=== PATIENT | male | born 1990 | race Caucasian/White ===

== ENCOUNTER → 2017-05-30 | Outpatient (REF) | payer OTHER | LOC: M LAB REF 16:13 | PROVIDERS: ATTEND Physician Assistant | DX: L02.511 Cutaneous abscess of right hand (principal) ==

== ENCOUNTER → 2017-09-09 | Outpatient (REF) | payer OTHER ==
[2017-09-09 19:17] LABS: INFLUENZA A AMPLIFICATION NEGATIVE (NEGATIVE); INFLUENZA B AMPLIFICATION NEGATIVE (NEGATIVE)
== END ==
LOC: M LAB REF 18:24
DX: J11.1 Influenza due to unidentified influenza virus with other respiratory manifestations (principal)
CPT/HCPCS: 87502

== ENCOUNTER 2017-12-01 18:07 | Emergency (ER) | payer OTHER ==
[2017-12-01] MEDS ORDERED: MAGIC MOUTHWASH SUSPENSION BTL SSP (18:38)
[2017-12-01] MEDS: LIDOCAINE VISCOUS 2% SOLN 15ML UDC SSP (18:49)
== END 2017-12-01 19:49 | disposition home or self-care (01) ==
LOC: M ED 18:07
DX: K02.9 Dental caries, unspecified (principal); K08.89 Other specified disorders of teeth and supporting structures; Z88.1 Allergy status to other antibiotic agents
CPT/HCPCS: 99282

== ENCOUNTER 2018-05-07 16:11 | Emergency (ER) | payer SELFPAY, MEDICAID, OTHER | END 2018-05-07 18:17 | disposition home or self-care (01) | LOC: M ED 16:11 | DX: J06.9 Acute upper respiratory infection, unspecified (principal) | CPT/HCPCS: 71046 ==

== ENCOUNTER 2018-09-22 03:23 | Emergency (ER) | payer OTHER, SELFPAY ==
[~2018-09-22] VITALS: Ht 175.3 cm; Wt 95.5 kg
[~2018-09-22 03:23] MED LIST: ALL10TAB28 PO; CLEO300C2 PO; MAGICMW MT; MOTR200T44 PO; PROAAER10 INH
[2018-09-22 04:08] LABS: HEMATOCRIT 45.3 % (42.0-52.0); HEMOGLOBIN 15.5 g/dl (13.5-17.5); MEAN CORPUSCULAR HEMOGLOBIN 29.3 pg (27.0-33.0); MEAN CORPUSCULAR HGB CONC 34.2 g/dl (32.0-36.5); MEAN CORPUSCULAR VOLUME 85.6 fl (80.0-96.0); PLATELET COUNT, AUTOMATED 315 10^3/uL (150-450); RED BLOOD COUNT 5.29 10^6/uL (4.30-6.10); WHITE BLOOD COUNT 10.3 10^3/uL (4.0-10.0)
[2018-09-22] MEDS ORDERED: HALOPERIDOL 5 MG/ML VIAL (J1630) IM ONE (04:15)
[2018-09-22] MEDS ORDERED: diphenhydrAMINE INJ 50MG/ML VIAL (J1200) IM ONE (04:15)
[2018-09-22] MEDS ORDERED: chlorproMAZINE INJ 50MG/2ML AMP (J3230) IM STA (04:20)
[2018-09-22 04:29] LABS: ACETAMINOPHEN LEVEL < 2.0 UG/ML (10.0-30.0); ALBUMIN 4.4 GM/DL (3.2-5.2); ALT/SGPT 44 U/L (12-78); BILIRUBIN,DIRECT 0.1 MG/DL (0.0-0.2); BILIRUBIN,TOTAL 0.6 MG/DL (0.2-1.0); BLOOD UREA NITROGEN 15 MG/DL (7-18); CALCIUM LEVEL 8.6 MG/DL (8.5-10.1); CARBON DIOXIDE LEVEL 21 MEQ/L (21-32); CHLORIDE LEVEL 107 MEQ/L (98-107); CREATININE FOR GFR 0.87 MG/DL (0.70-1.30); ETHYL ALCOHOL (ETHANOL) 0.286 % (0.000-0.010); GLOMERULAR FILTRATION RATE > 60.0 (>60); GLUCOSE, FASTING 113 MG/DL (70-100); POTASSIUM SERUM 3.5 MEQ/L (3.5-5.1); SALICYLATE LEVEL < 1.7 MG/DL (5.0-30.0); SODIUM LEVEL 139 MEQ/L (136-145); TOTAL PROTEIN 8.1 GM/DL (6.4-8.2)
[2018-09-22] MEDS ORDERED: LORazepam 2 MG/ML VIAL (J2060) IM STA (04:55)
[2018-09-22] MEDS ORDERED: HALOPERIDOL 5 MG/ML VIAL (J1630) IM STA (05:27)
[2018-09-22] MEDS ORDERED: LORazepam 2 MG TAB PO PRN (07:00)
[2018-09-22] MEDS ORDERED: NS 1,000 ML IV ONE ×2 (07:30→15:30)
[2018-09-22 08:26] LABS: AMPHETAMINES LEVEL URINE NEGATIVE (NEGATIVE); BARBITURATES URINE NEGATIVE (NEGATIVE); BENZODIAZEPINES URINE NEGATIVE (NEGATIVE); CANNABINOIDS URINE NEGATIVE (NEGATIVE); COCAINE METABOLITE URINE NEGATIVE (NEGATIVE); METHADONE URINE NEGATIVE (NEGATIVE); OPIATES URINE NEGATIVE (NEGATIVE); PHENCYCLIDINE URINE NEGATIVE (NEGATIVE)
[2018-09-22] MEDS ORDERED: FOLIC ACID 1 MG TAB PO SCH (09:00)
[2018-09-22] MEDS ORDERED: MULTIVITAMINS/MINERALS THERAP 1 TAB PO SCH (09:00)
[2018-09-22] MEDS ORDERED: D5W/0.9% SODIUM CHLORIDE 1,000 ML IV ONE (10:30)
--- NOTE | 2018-09-22 11:36 | REP ---
CT BRAIN WITHOUT IV CONTRAST: CT brain performed without IV contrast. Ventricles are normal in size and position with no midline shift or mass effect. Reddy-white differentiation is well maintained. There is on acute hemorrhage or extra-axial fluid collection. Bone window examination is unremarkable. IMPRESSION: Negative noncontrast CT brain. Electronically Signed by Catarino Reddy MD 09/22/2018 07:23 P
[2018-09-22] MEDS ORDERED: AMMONIA AROMATIC INHALANT (FLOOR STOCK) STA (12:41)
[2018-09-22] MEDS: THIAMINE 100 MG TAB PO SCH ×2 (17:47→21:00)
--- NOTE | 2018-09-23 06:41 | ECGEPIP ---
Stationary ECG Study [facility] - ED Test Date: 2018-09-23 Pat Name: MULUGETA TROY Department: Room: - Gender: M [employer]: : 1990 Requested By: RADHA KEEN Order Number: [id number] Reading MD: Shawn Shaikh Measurements Intervals [place] Rate: 99 P: 53 AK: 151 QRS: 38 QRSD: 95 T: 29 QT: 343 QTc: 441 Interpretive Statements SINUS RHYTHM NO OLD ECG FOR COMPARISON Electronically Signed On 09-23-2018 6:41:16 EST by Shawn Shaikh
[2018-09-23 08:35] VITALS: BP 132/72
== END 2018-09-23 08:40 | disposition short-term general hospital (02) ==
LOC: M ED 03:23
DX: F10.120 Alcohol abuse with intoxication, uncomplicated (principal); F91.9 Conduct disorder, unspecified; R45.851 Suicidal ideations; Z88.1 Allergy status to other antibiotic agents; Z79.899 Other long term (current) drug therapy
CPT/HCPCS: 36415; 51701; 70450; 80048; 80076; 80307; 84443; 85027; 93005; 93041; 96360; 96372; 99285; G0480; J1200; J1630; J2060; J3230

== ENCOUNTER 2018-11-25 07:50 | Emergency (ER) | payer OTHER ==
[~2018-11-25] VITALS: Ht 180.3 cm; Wt 86.4 kg
[2018-11-25] MEDS ORDERED: LIDOCAINE 1% MDV 20ML VIAL As Ordered ONE (08:10)
[2018-11-25] MEDS ORDERED: LIDOCAINE 1% MDV 20ML VIAL SC ONE (08:15)
[2018-11-25] MEDS ORDERED: ADACEL/BOOSTRIX VACCINE (DIPHTH/PERTUSS/ACELL/TETANUS)0.5ML SYR (90715) IM ONE (08:15)
[2018-11-25] MEDS ORDERED: NS 1,000 ML IV SCH (08:33)
[2018-11-25 09:00] VITALS: BP 119/70
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
== END 2018-11-25 09:25 | disposition short-term general hospital (02) ==
LOC: M ED 07:50
DX: S06.6X0A Traumatic subarachnoid hemorrhage without loss of consciousness, initial encounter (principal); S01.511A Laceration without foreign body of lip, initial encounter; W01.10XA Fall on same level from slipping, tripping and stumbling with subsequent striking against unspecified object, initial encounter; Y92.002 Bathroom of unspecified non-institutional (private) residence as the place of occurrence of the external cause; Y93.01 Activity, walking, marching and hiking; Z88.1 Allergy status to other antibiotic agents

== ENCOUNTER 2018-11-27 16:26 | Emergency (ER) | payer OTHER ==
[~2018-11-27] VITALS: Ht 180.3 cm; Wt 95.5 kg
[2018-11-27] MEDS ORDERED: ACET160S3 PO (16:32)
[2018-11-27] MEDS ORDERED: NORC1TAB7 PO (17:59)
[2018-11-27] MEDS ORDERED: CLEO300C2 PO (17:59)
[2018-11-27 18:12] VITALS: BP 131/92
== END 2018-11-27 18:23 | disposition home or self-care (01) ==
LOC: M ED 16:26
DX: K05.213 Aggressive periodontitis, localized, severe (principal); K02.9 Dental caries, unspecified; R68.84 Jaw pain; Z86.79 Personal history of other diseases of the circulatory system; Z88.1 Allergy status to other antibiotic agents

== ENCOUNTER 2019-08-21 23:03 | Emergency (ER) | payer OTHER ==
[~2019-08-21] VITALS: Ht 175.3 cm; Wt 99.9 kg
[~2019-08-21 23:03] MED LIST changes: +ACET160S3 PO; -ALL10TAB28 PO; +ALL10TAB29 PO; +NORC1TAB7 PO
[2019-08-22 00:13] LABS: INFLUENZA A AMPLIFICATION NEGATIVE (NEGATIVE); INFLUENZA B AMPLIFICATION NEGATIVE (NEGATIVE)
[2019-08-22] MEDS ORDERED: CLARITHROMYCIN 250 MG TAB PO ONE (00:30)
[2019-08-22] MEDS ORDERED: CLAR250T22 PO (00:30)
[2019-08-22 00:50] VITALS: BP 114/70
[2019-08-22] MEDS ORDERED: CLARITHROMYCIN 250 MG TAB PO SCH (09:00)
== END 2019-08-22 00:51 | disposition home or self-care (01) ==
LOC: M ED 23:03
DX: J02.0 Streptococcal pharyngitis (principal); Z88.8 Allergy status to other drugs, medicaments and biological substances

== ENCOUNTER 2019-08-29 22:56 | Emergency (ER) | payer OTHER ==
[~2019-08-29] VITALS: Ht 177.8 cm; Wt 95.3 kg
[~2019-08-29 22:56] MED LIST changes: +CLAR250T22 PO
[2019-08-29 22:57] VITALS: BP 132/66
[2019-08-30 01:46] LABS: INFLUENZA A AMPLIFICATION NEGATIVE (NEGATIVE); INFLUENZA B AMPLIFICATION NEGATIVE (NEGATIVE)
[2019-08-30] MEDS ORDERED: LIDOCAINE VISCOUS 2% SOLN 15ML UDC SS ONE (02:45)
== END 2019-08-30 02:55 | disposition home or self-care (01) ==
LOC: M ED 22:56
DX: J02.8 Acute pharyngitis due to other specified organisms (principal); Z88.1 Allergy status to other antibiotic agents

== ENCOUNTER 2019-09-28 03:44 | Emergency (ER) | payer OTHER ==
[~2019-09-28] VITALS: Ht 177.8 cm; Wt 93.2 kg
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
[2019-09-28 05:09] LABS: BASO % 0.4 % (0.0-1.0); EOS # 0.1 10^3/uL (0.0-0.5); EOS % 0.7 % (0.0-3.0); HEMATOCRIT 45.1 % (42.0-52.0); HEMOGLOBIN 15.3 g/dl (13.5-17.5); LYMPH # 1.6 10^3/uL (1.5-5.0); LYMPH % 22.2 % (24.0-44.0); MEAN CORPUSCULAR HEMOGLOBIN 28.9 pg (27.0-33.0); MEAN CORPUSCULAR HGB CONC 33.9 g/dl (32.0-36.5); MEAN CORPUSCULAR VOLUME 85.1 fl (80.0-96.0); MONO # 0.4 10^3/uL (0.0-0.8); NEUTROPHILS % 70.4 % (36.0-66.0); PLATELET COUNT, AUTOMATED 306 10^3/uL (150-450); WHITE BLOOD COUNT 7.1 10^3/uL (4.0-10.0)
[2019-09-28 05:20] LABS: INR 1.06; PROTHROMBIN TIME 13.5 SECONDS (11.8-14.0)
[2019-09-28 05:21] LABS: PARTIAL THROMBOPLASTIN TIME 28.3 SECONDS (25.0-38.4)
[2019-09-28 05:31] LABS: BLOOD UREA NITROGEN 11 MG/DL (7-18); CALCIUM LEVEL 9.4 MG/DL (8.5-10.1); CARBON DIOXIDE LEVEL 26 MEQ/L (21-32); CHLORIDE LEVEL 105 MEQ/L (98-107); CREATININE FOR GFR 0.91 MG/DL (0.70-1.30); ETHYL ALCOHOL (ETHANOL) 0.126 % (0.000-0.010); GLOMERULAR FILTRATION RATE > 60.0 (>60); GLUCOSE, FASTING 113 MG/DL (70-100); POTASSIUM SERUM 3.6 MEQ/L (3.5-5.1); SODIUM LEVEL 141 MEQ/L (136-145)
[2019-09-28 05:56] VITALS: BP 111/72
== END 2019-09-28 05:56 | disposition short-term general hospital (02) ==
LOC: M ED 03:44
DX: S06.6X0A Traumatic subarachnoid hemorrhage without loss of consciousness, initial encounter (principal); T76.11XA Adult physical abuse, suspected, initial encounter; Y07.9 Unspecified perpetrator of maltreatment and neglect; Y92.9 Unspecified place or not applicable; Y93.9 Activity, unspecified; Y99.9 Unspecified external cause status; F10.120 Alcohol abuse with intoxication, uncomplicated
CPT/HCPCS: 36415; 70450; 70486; 72125; 80048; 85025; 85610; 85730; 99285; G0480

== ENCOUNTER 2019-10-17 04:51 | Emergency (ER) | payer OTHER ==
[~2019-10-17] VITALS: Ht 177.8 cm; Wt 95.5 kg
[2019-10-17] MEDS ORDERED: ONDANSETRON 4MG/2ML VIAL (J2405) IV ONE (05:00)
[2019-10-17] MEDS ORDERED: NS 1,000 ML IV ONE (05:00)
[2019-10-17 05:19] LABS: BASO # 0.1 10^3/uL (0.0-0.2); BASO % 0.7 % (0.0-1.0); EOS # 0.1 10^3/uL (0.0-0.5); EOS % 0.8 % (0.0-3.0); HEMATOCRIT 45.5 % (42.0-52.0); HEMOGLOBIN 15.4 g/dl (13.5-17.5); LYMPH # 2.6 10^3/uL (1.5-5.0); LYMPH % 30.2 % (24.0-44.0); MEAN CORPUSCULAR HEMOGLOBIN 28.8 pg (27.0-33.0); MEAN CORPUSCULAR HGB CONC 33.8 g/dl (32.0-36.5); MEAN CORPUSCULAR VOLUME 85.2 fl (80.0-96.0); MONO # 0.5 10^3/uL (0.0-0.8); MONO % 5.4 % (0.0-5.0); NEUTROPHILS # 5.3 10^3/uL (1.5-8.5); NEUTROPHILS % 62.3 % (36.0-66.0); PLATELET COUNT, AUTOMATED 314 10^3/uL (150-450); RED BLOOD COUNT 5.34 10^6/uL (4.30-6.10); WHITE BLOOD COUNT 8.5 10^3/uL (4.0-10.0)
[2019-10-17 05:53] LABS: ALBUMIN 4.4 GM/DL (3.2-5.2); ALT/SGPT 35 U/L (12-78); BILIRUBIN,DIRECT 0.2 MG/DL (0.0-0.2); BILIRUBIN,TOTAL 0.6 MG/DL (0.2-1.0); BLOOD UREA NITROGEN 17 MG/DL (7-18); CARBON DIOXIDE LEVEL 23 MEQ/L (21-32); CHLORIDE LEVEL 107 MEQ/L (98-107); CREATININE FOR GFR 0.88 MG/DL (0.70-1.30); GLOMERULAR FILTRATION RATE > 60.0 (>60); GLUCOSE, FASTING 124 MG/DL (70-100); LIPASE 108 U/L (73-393); POTASSIUM SERUM 3.8 MEQ/L (3.5-5.1); SODIUM LEVEL 140 MEQ/L (136-145); TOTAL PROTEIN 8.3 GM/DL (6.4-8.2)
[2019-10-17 06:39] VITALS: BP 110/68
[2019-10-17] MEDS ORDERED: ZOFR4TAB16 PO (06:39)
== END 2019-10-17 06:51 | disposition home or self-care (01) ==
LOC: M ED 04:51 → EDBD 04:51 → M ED 06:51
DX: F10.229 Alcohol dependence with intoxication, unspecified (principal); Y90.1 Blood alcohol level of 20-39 mg/100 ml; Z88.1 Allergy status to other antibiotic agents
CPT/HCPCS: 80048; 80076; 83690; 85025; 96361; 96374; 99284; G0480; J2405

== ENCOUNTER 2021-01-06 21:53 | Emergency (ER) | payer OTHER ==
[~2021-01-06] VITALS: Ht 177.8 cm; Wt 99.7 kg
[~2021-01-06 21:53] MED LIST changes: -ALL10TAB29 PO; +CETI-24 PO; +ZOFR4TAB16 PO
[2021-01-07] MEDS ORDERED: KETOROLAC 60MG 2ML VIAL IM ONE (00:30)
[2021-01-07] MEDS ORDERED: CLINDAMYCIN 150MG CAPSULE PO ONE (00:30)
[2021-01-07] MEDS ORDERED: NORCO 5/325MG TABLET (BULK FOR ED) PO ONE (00:30)
[2021-01-07] MEDS ORDERED: CLEO300C2 PO (00:33)
[2021-01-07] MEDS ORDERED: MAGICMW SSP (00:33)
[2021-01-07] MEDS ORDERED: IBUP80TA PO (00:33)
[2021-01-07] MEDS ORDERED: HYDR-3713 PO (00:33)
[2021-01-07 00:54] VITALS: BP 140/91
== END 2021-01-07 00:59 | disposition home or self-care (01) ==
LOC: M ED 21:53
DX: K00.6 Disturbances in tooth eruption (principal); K08.89 Other specified disorders of teeth and supporting structures; Z88.1 Allergy status to other antibiotic agents
CPT/HCPCS: 96372; 99283; J1885

== ENCOUNTER 2021-01-09 13:06 | Observation (INO) | payer OTHER ==
[2021-01-08 18:25] VITALS: BP 133/75
[~2021-01-09] VITALS: Ht 177.8 cm; Wt 99.3 kg
[~2021-01-09 13:06] MED LIST changes: +HYDR-3713 PO; +IBUP80TA PO; +MAGICMW SSP
[2021-01-09] MEDS ORDERED: HYDR-4571 PO (13:32)
[2021-01-09] MEDS ORDERED: KETOROLAC 30 MG/ML 1ML VIAL IV ONE (14:45)
[2021-01-09] MEDS ORDERED: ISOVUE-370 76% 100ML VIAL As Ordered ONE (14:52)
[2021-01-09 15:00] LABS: BASO % 0.3 % (0.0-1.0); EOS # 0.1 10^3/uL (0.0-0.5); EOS % 1.2 % (0.0-3.0); HEMATOCRIT 44.8 % (42.0-52.0); HEMOGLOBIN 14.6 g/dl (13.5-17.5); LYMPH # 1.5 10^3/uL (1.5-5.0); LYMPH % 16.7 % (24.0-44.0); MEAN CORPUSCULAR HEMOGLOBIN 27.8 pg (27.0-33.0); MEAN CORPUSCULAR HGB CONC 32.6 g/dl (32.0-36.5); MEAN CORPUSCULAR VOLUME 85.3 fl (80.0-96.0); MONO # 0.6 10^3/uL (0.0-0.8); MONO % 6.3 % (2.0-8.0); NEUTROPHILS # 6.9 10^3/uL (1.5-8.5); NEUTROPHILS % 75.2 % (36.0-66.0); PLATELET COUNT, AUTOMATED 322 10^3/uL (150-450); RED BLOOD COUNT 5.25 10^6/uL (4.30-6.10); WHITE BLOOD COUNT 9.2 10^3/uL (4.0-10.0)
--- NOTE | 2021-01-09 15:25 | REP ---
INDICATION: concern for dental abscess, include mandible please COMPARISON: None. TECHNIQUE: Axial contrast-enhanced images through the facial bones to include the mandible with coronal and sagittal re-formations using 75 cc Isovue 370 intravenous contrast material. FINDINGS: Soft tissue swelling with phlegmonous changes and inflammatory stranding surrounds the left mandibular angle extending into the sublingual region of the oropharynx along with reactive submandibular and left cervical chain lymph nodes consistent with an infectious/inflammatory process likely related to dental pathology primarily involving the left mandibular wisdom teeth. No obvious discernible drainable collection/abscess is currently identified. There is associated mass effect along the left side of the oropharynx but the airway remains patent and of normal luminal diameter. Osseous structures, mastoid air cells and sinuses are normal. IMPRESSION: Significant infectious/inflammatory findings with swelling and phlegmonous changes along the left side of the face centered around the left mandibular angle at the site of molar dental cavities. Associated reactive submandibular and left cervical chain adenopathy noted. No drainable collection/abscess currently identified. <Electronically signed by Edmundo Caballero > 01/09/21 [id number]
[2021-01-09] MEDS ORDERED: CLINDAMYCIN 600 MG in IV 1 EA IV ONE (15:45)
[2021-01-09] MEDS ORDERED: ACETAMINOPHEN 500 MG TAB PO PRN (16:20)
[2021-01-09 17:03] LABS: RSV AMPLIFICATION NEGATIVE (NEGATIVE)
--- NOTE | 2021-01-09 17:29 | HPEPDOC ---
General Date of Admission January 09, 2021 at 16:19 Date of Service: January 09, 2021 Chief Complaint The patient is a 30-year-old male admitted with a reason for visit of Infected Dental Caries. Source: Patient History of Present Illness 30-year-old male with no past medical history presented to the emergency room for left lower jaw pain and swelling for the past 3 weeks. Patient had initially gone to see a dentist and he was diagnosed with the dental caries with infection and was referred to an oral surgeon and given an antibiotic, amoxicillin course for 10 days. If he needs the course of amoxicillin. However, he is some pain didn't improve, so he came to the emergency room 3 days ago and was given a course of clindamycin. Patient's appointment with the oral surgeon was in March. Patient came back today to the emergency room because of unrelenting pain in the left lower jaw 10 x 10 in intensity, sharp, throbbing in quality, unable to chew, unable to open his mouth radiating along the whole of his left lower jaw Left-sided neck and to the left ear. Maxillofacial CT in the emergency room showed soft tissue swelling with phlegmonous changes and inflammatory stranding surrounds the left mandibular angle extending into the sublingual region of the oropharynx along with reactive submandibular and left cervical chain lymph nodes consistent with an infectious/inflammatory process likely related to dental pathology primarily involving the left mandibular wisdom teeth. No obvious discernible drainable collection/abscess. Oral surgeon, Dr. Morgan was contacted by the ED provider and the case discussed with him. Dr. Morgan recommended patient to be admitted for IV antibiotics and that he would see the patient in the office on MondayJanuary 12 at 8 AM. If the patient worsens while in the hospital, then he would consult on the patient in house. Patient is admitted to the hospitalist service for left mandibular infection related to dental pathology for IV antibiotics Home Medications Scheduled Clindamycin Hcl (Cleocin HCl) 300 Mg Capsule, 1 CAP PO TID Scheduled PRN Ibuprofen (Ibuprofen) 800 Mg Tablet, 800 MG PO Q6H PRN for PAIN Miscellaneous Medications Hydrocodone/Acetaminophen (Hydrocodone-Acetamin 5-325 mg) 1 Each Tablet, (Reported) Allergies Coded Allergies: cefaclor (Verified Allergy, Mild, HIVES, 11/25/18) Past Medical History Medical History Ear problems Surgical History Tubes in ears Family History Significant Family History: No pertinent family hx Discussed with the patient Social History * Smoker: non-smoker Alcohol: rarely Drugs: denies A-FIB/CHADSVASC A-FIB History Current/History of A-Fib/PAF?: No Review of Systems Constitutional: Denies: Chills, Fever, Night Sweats Eyes: Denies: Pain, Vision change ENT: Reports: Ear Pain, Other Symptoms (left lower jaw pain) Skin: Denies: Rash, Lesions, Breakdown Pulmonary: Denies: Dyspnea, Cough Cardiovascular: Denies: Chest Pain, Palpitations, Orthopnea, Paroxysmal Noc. Dyspnea, Lt Headedness Gastrointestinal: Denies: Nausea, Vomiting, Abdominal Pain, Diarrhea Musculoskeletal: Denies: Neck Pain, Back Pain, Joint Pain, Muscle Pain, Spasms Physical Examination General Exam: Positive: Alert, Cooperative, No Acute Distress Eye Exam: Positive: PERRLA, Conjunctiva & lids normal, EOMI; Negative: Sclera icteric ENT Exam: Positive: Atraumatic, Other ENT (left lower jaw, inflamed and tender at the region of the last molar) Neck Exam: Positive: Supple, Lymphadenopathy (. Left); Negative: JVD, thyromegaly Chest Exam: Positive: Clear to auscultation, Normal air movement Heart Exam: Positive: Rate Normal, Regular Rhythm, Normal S1, Normal S2; Negative: Murmurs, Rubs Abdomen Exam: Positive: Normal bowel sounds, Soft; Negative: Tenderness, Hepatospenomegaly Extremity Exam: Positive: Normal pulses; Negative: Clubbing, Cyanosis, Edema Vital Signs Vital Signs Date Time Temp Pulse Resp B/P (MAP) Pulse Ox O2 Delivery O2 Flow Rate FiO2 01/09/21 13:43 01/09/21 13:29 98.2 85 16 99 Room Air Laboratory Data Labs 24H Laboratory Tests 2 01/09/21 14:37: Immature Granulocyte % (Auto) 0.3, Neutrophils (%) (Auto) 75.2H, Lymphocytes (%) (Auto) 16.7L, Monocytes (%) (Auto) 6.3, Eosinophils (%) (Auto) 1.2, Basophils (%) (Auto) 0.3, Neutrophils # (Auto) 6.9, Lymphocytes # (Auto) 1.5, Monocytes # (Auto) 0.6, Eosinophils # (Auto) 0.1, Basophils # (Auto) 0.0, Nucleated Red Blood Cells % (auto) 0.0 01/09/21 14:44: POC Glucose (Misc Panel) 124H, POC Sodium (Misc Panel) 137, POC Potassium (Misc Panel) 3.8, POC Chloride (Misc Panel) 101, POC Total CO2 (Misc Panel) 28.0H, POC Blood Urea Nitrogen (Misc Panel 10, POC Ionized Calcium (Misc Panel) 5.0, POC Creatinine (Misc Panel) 0.7, POC Hematocrit (Misc Panel) 45.0 01/09/21 16:16: Coronavirus (COVID-19)(PCR) NEGATIVE, Influenza Type A (RT-PCR) NEGATIVE, Influenza Type B (RT-PCR) NEGATIVE, Respiratory Syncytial Virus (PCR) NEGATIVE CBC/BMP Laboratory Tests 01/09/21 14:37 Assessment/Plan 30-year-old male with no past medical history presented to the emergency room for left lower jaw pain and swelling for the past 3 weeks. Patient had initially gone to see a dentist and he was diagnosed with the dental caries with infection and was referred to an oral surgeon and given an antibiotic, amoxicillin course for 10 days. If he needs the course of amoxicillin. However, he is some pain didn't improve, so he came to the emergency room 3 days ago and was given a course of clindamycin. Patient's appointment with the oral surgeon was in March. Patient came back today to the emergency room because of unrelenting pain in the left lower jaw. Maxillofacial CT in the emergency room showed soft tissue swelling with phlegmonous changes and inflammatory stranding surrounds the left mandibular angle extending into the sublingual region of the oropharynx along with reactive submandibular and left cervical chain lymph nodes consistent with an infectious/inflammatory process likely related to dental pathology primarily involving the left mandibular wisdom teeth. No obvious discernible drainable collection/abscess. Oral surgeon, Dr. Morgan was contacted by the ED provider and the case discussed with him. Dr. Morgan recommended patient to be admitted for IV antibiotics and that he would see the patient in the office on MondayJanuary 12 at 8 AM. If the patient worsens while in the hospital, then he would consult on the patient in house. Patient is admitted to the hospitalist service for left mandibular infection related to dental pathology for IV antibiotics Left mandibular infection Related to dental etiology Will continue on IV clindamycin Been controlled with Tylenol and Toradol Plan / VTE VTE Prophylaxis Ordered?: No (freely Ambulatory) ROJELOI NOWAK MD January 09, 2021 17:29
[2021-01-09 17:45] VITALS: BP 133/75
[2021-01-09] MEDS ORDERED: CLIN300C6 PO (18:09)
[2021-01-09] MEDS ORDERED: IBUP80TA PO (18:09)
[2021-01-09] MEDS: CLINDAMYCIN 600 MG in IV 1 EA IV SCH (21:05)
[2021-01-09 22:00] VITALS: BP 135/83
[2021-01-09] MEDS: KETOROLAC 30 MG/ML 1ML VIAL IV PRN (22:27)
[2021-01-10] MEDS: CLINDAMYCIN 600 MG in IV 1 EA IV SCH ×2 (04:30→09:44)
[2021-01-10] MEDS: KETOROLAC 30 MG/ML 1ML VIAL IV PRN (04:30)
[2021-01-10 05:53] LABS: HEMATOCRIT 39.7 % (42.0-52.0); HEMOGLOBIN 12.8 g/dl (13.5-17.5); MEAN CORPUSCULAR HEMOGLOBIN 27.4 pg (27.0-33.0); MEAN CORPUSCULAR HGB CONC 32.2 g/dl (32.0-36.5); MEAN CORPUSCULAR VOLUME 84.8 fl (80.0-96.0); PLATELET COUNT, AUTOMATED 306 10^3/uL (150-450); RED BLOOD COUNT 4.68 10^6/uL (4.30-6.10); WHITE BLOOD COUNT 9.3 10^3/uL (4.0-10.0)
[2021-01-10 06:00] VITALS: BP 113/70
[2021-01-10 06:04] LABS: BLOOD UREA NITROGEN 8 MG/DL (7-18); CALCIUM LEVEL 9.5 MG/DL (8.5-10.1); CARBON DIOXIDE LEVEL 29 MEQ/L (21-32); CHLORIDE LEVEL 101 MEQ/L (98-107); CREATININE FOR GFR 0.85 MG/DL (0.70-1.30); GLOMERULAR FILTRATION RATE > 60.0 (>60); GLUCOSE, FASTING 152 MG/DL (70-100); POTASSIUM SERUM 3.7 MEQ/L (3.5-5.1); SODIUM LEVEL 138 MEQ/L (136-145)
[2021-01-10] MEDS ORDERED: CLIN300C6 PO (09:56)
--- NOTE | 2021-01-10 18:42 | IPNPDOC ---
Subjective Date Seen The patient was seen on 01/10/21. Subjective Chief Complaint/HPI No fever or chills. Jaw pain better, able to chew better. Objective Physical Examination General Exam: Positive: Alert, Cooperative, No Acute Distress Eye Exam: Positive: PERRLA, Conjunctiva & lids normal, EOMI; Negative: Sclera icteric ENT Exam: Positive: Atraumatic, Other ENT (left lower jaw, inflamed and tender at the region of the last molar) Neck Exam: Positive: Supple, Lymphadenopathy (. Left); Negative: JVD, thyromegaly Chest Exam: Positive: Clear to auscultation, Normal air movement Heart Exam: Positive: Rate Normal, Regular Rhythm, Normal S1, Normal S2; Negative: Murmurs, Rubs Abdomen Exam: Positive: Normal bowel sounds, Soft; Negative: Tenderness, Hepatospenomegaly Extremity Exam: Positive: Normal pulses; Negative: Clubbing, Cyanosis, Edema Assessment /Plan Assessment 30-year-old male with no past medical history presented to the emergency room for left lower jaw pain and swelling for the past 3 weeks. Patient had initially gone to see a dentist and he was diagnosed with the dental caries with infection and was referred to an oral surgeon and given an antibiotic, amoxicillin course for 10 days. If he needs the course of amoxicillin. However, he is some pain didn't improve, so he came to the emergency room 3 days ago and was given a course of clindamycin. Patient's appointment with the oral surgeon was in March. Patient came back today to the emergency room because of unrelenting pain in the left lower jaw. Maxillofacial CT in the emergency room showed soft tissue swelling with phlegmonous changes and inflammatory stranding surrounds the left mandibular angle extending into the sublingual region of the oropharynx along with reactive submandibular and left cervical chain lymph nodes consistent with an infectious/inflammatory process likely related to dental pathology primarily involving the left mandibular wisdom teeth. No obvious discernible drainable collection/abscess. Oral surgeon, Dr. Morgan was contacted by the ED provider and the case discussed with him. Dr. Morgan recommended patient to be admitted for IV antibiotics and that he would see the patient in the office on MondayJanuary 12 at 8 AM. If the patient worsens while in the hospital, then he would consult on the patient in house. Patient is admitted to the hospitalist service for left mandibular infection related to dental pathology for IV antibiotics Left mandibular infection Related to dental etiology received 24 hours of IV clindamycin with improvement of symptoms. will discharge home with increased dose of clindamycin. pain control with ibuprofen and norco Discussed with Dr Morgan and instructed to go to his office on 01/12/21 at 8am Dispo: Home Plan/VTE VTE Prophylaxis Ordered?: No (freely Ambulatory) VS, I&O, 24H, Fishbone Vital Signs/I&O Vital Signs Date Time Temp Pulse Resp B/P (MAP) Pulse Ox O2 Delivery O2 Flow Rate FiO2 01/09/21 22:00 98.5 78 18 135/83 (100) 99 Room Air I&O- Last 24 Hours up to 6 AM 01/10/21 06:00 Intake Total 150 ml Output Total 0 ml Balance 150 ml Laboratory Data 24H LABS Laboratory Tests 2 01/09/21 14:37: Immature Granulocyte % (Auto) 0.3, Neutrophils (%) (Auto) 75.2H, Lymphocytes (%) (Auto) 16.7L, Monocytes (%) (Auto) 6.3, Eosinophils (%) (Auto) 1.2, Basophils (%) (Auto) 0.3, Neutrophils # (Auto) 6.9, Lymphocytes # (Auto) 1.5, Monocytes # (Auto) 0.6, Eosinophils # (Auto) 0.1, Basophils # (Auto) 0.0, Nucleated Red Blood Cells % (auto) 0.0 01/09/21 14:44: POC Glucose (Misc Panel) 124H, POC Sodium (Misc Panel) 137, POC Potassium (Misc Panel) 3.8, POC Chloride (Misc Panel) 101, POC Total CO2 (Misc Panel) 28.0H, POC Blood Urea Nitrogen (Misc Panel 10, POC Ionized Calcium (Misc Panel) 5.0, POC Creatinine (Misc Panel) 0.7, POC Hematocrit (Misc Panel) 45.0 01/09/21 16:16: Coronavirus (COVID-19)(PCR) NEGATIVE, Influenza Type A (RT-PCR) NEGATIVE, Influenza Type B (RT-PCR) NEGATIVE, Respiratory Syncytial Virus (PCR) NEGATIVE 01/10/21 05:31: Nucleated Red Blood Cells % (auto) 0.0, Anion Gap 8, Glomerular Filtration Rate > 60.0, Calcium Level 9.5 CBC/BMP Laboratory Tests 01/09/21 14:37 01/10/21 05:31 ROJELIO NOWAK MD January 10, 2021 06:43
== END 2021-01-10 12:45 | disposition home or self-care (01) ==
LOC: M ED 13:06 → M ED INP 16:19 → ENRESERV 17:15 → M MS5PR 17:57
PROVIDERS: ADMIT Internal Medicine Nephrology; ATTEND Internal Medicine Nephrology
DX: K04.7 Periapical abscess without sinus (principal); K02.9 Dental caries, unspecified; R68.84 Jaw pain; R59.0 Localized enlarged lymph nodes; Z88.1 Allergy status to other antibiotic agents
CPT/HCPCS: 36415; 70487; 80047; 80048; 85025; 85027; 87631; 96365; 96366; 96375; 96376; 99284; J1885; Q9967

== ENCOUNTER 2021-05-24 17:09 | Emergency (ER) | payer OTHER ==
[~2021-05-24] VITALS: Ht 180.3 cm; Wt 95.7 kg
[~2021-05-24 17:09] MED LIST changes: +CLIN300C6 PO; +HYDR-4571 PO
[2021-05-24 17:14] VITALS: BP 120/76
== END 2021-05-24 20:30 | disposition left against medical advice (07) ==
LOC: M ED 17:09
DX: Z53.21 Procedure and treatment not carried out due to patient leaving prior to being seen by health care provider (principal)

== ENCOUNTER 2022-03-12 03:10 | Emergency (ER) | payer OTHER ==
[~2022-03-12] VITALS: Ht 177.8 cm; Wt 95.5 kg
[~2022-03-12 03:10] MED LIST changes: +CLIN-250 PO; -CLIN300C6 PO
[2022-03-12] MEDS ORDERED: ACETAMINOPHEN 500 MG TAB PO ONE (08:20)
[2022-03-12 08:55] VITALS: BP 120/69
== END 2022-03-12 08:56 | disposition home or self-care (01) ==
LOC: EDBD 03:10 → M ED 03:10
DX: S00.83XA Contusion of other part of head, initial encounter (principal); Y00.XXXA Assault by blunt object, initial encounter; J32.0 Chronic maxillary sinusitis

== ENCOUNTER 2025-03-26 16:17 | Emergency (ER) | payer OTHER, SELFPAY ==
[~2025-03-26] VITALS: Ht 180.3 cm; Wt 102.4 kg
[2025-03-26] MEDS ORDERED: TYLE650T38 PO (16:23)
[2025-03-26] MEDS ORDERED: VENTAER INH (19:55)
[2025-03-26] MEDS ORDERED: BENZ200C70 PO (19:55)
[2025-03-26 20:05] VITALS: BP 130/82; TEMP 99.8; O2SAT 95
== END 2025-03-26 20:09 | disposition home or self-care (01) ==
LOC: M ED 16:17
DX: U07.1 COVID-19 (principal); Z88.1 Allergy status to other antibiotic agents; Z79.1 Long term (current) use of non-steroidal anti-inflammatories (NSAID); Z79.51 Long term (current) use of inhaled steroids